=== PATIENT | female | born 1970 | race Caucasian/White ===

== ENCOUNTER → 2017-06-20 | Outpatient (CLI) | payer BC ==
[~2017-06-20] MED LIST: LISI1TAB10 PO; NEBI20TA2 PO; SPIR25TA3 PO
--- NOTE | 2017-06-21 08:41 | Diagnostic Imaging Report ---
Digital mammogram bilateral screening with tomosynthesis. This study was compared to the prior exams of 06/17/2016 and 07/15/2013. At this time, there are no current complaints. The current study was also evaluated with a Computer Aided Detection (CAD) system. FINDINGS: There are bilateral breast implants in place. The implants seem similar to the prior exam. There is no sign of an extracapsular rupture of either implant. The fibroglandular tissue overlying the implants is extremely dense. This does limit the sensitivity of this exam. When compared to the previous study, there does not seem to have been any significant change. There are few benign-appearing calcifications scattered throughout both breasts. There is no primary or secondary sign of malignancy noted. The tomographic views fail to show any sign of malignancy as well. IMPRESSION: 1. There is no evidence for malignancy. 2. The implants appear stable. There is no sign of an extracapsular rupture of either implant. ACR BI-RADS Category 1: Negative. Result letter will be mailed to the patient. Note: At least 10% of breast cancer is not imaged by mammography. Dictated by: Dictated on workstation # [id number]
== END ==
LOC: RAD 13:12
PROVIDERS: ATTEND Nurse Practitioner Family
DX: Z12.31 Encounter for screening mammogram for malignant neoplasm of breast (principal); Z98.82 Breast implant status
CPT/HCPCS: 77067

== ENCOUNTER 2017-07-17 15:58 | Outpatient (RCR) | payer BC | END 2017-07-25 16:52 | disposition home or self-care (01) | PROVIDERS: ATTEND Orthopaedic Surgery Hand Surgery | DX: S63.291A Dislocation of distal interphalangeal joint of left index finger, initial encounter (principal); W19.XXXA Unspecified fall, initial encounter ==

== ENCOUNTER → 2018-06-09 | Outpatient (CLI) | payer BC ==
--- NOTE | 2018-06-09 12:21 | Diagnostic Imaging Report ---
Indication: Routine screening. Comparison is made with prior mammograms from 06/20/2017 and 06/17/2016. 2-D and 3-D bilateral screening mammography was performed with CAD. Bilateral breast implants are again noted. Implant contours appear smooth. No definite extracapsular rupture is seen. The breast parenchyma remains heterogeneously dense, limiting the sensitivity of mammography. No spiculated masses or malignant-appearing microcalcifications are seen. Benign calcifications are noted bilaterally. The axillae are unremarkable. Impression: BI-RADS category 2 No mammographic features suspicious for malignancy are identified. ACR BI-RADS Category 2: Benign findings. Result letter will be mailed to the patient. Note: At least 10% of breast cancer is not imaged by mammography. Dictated by: Dictated on workstation # [id number]
== END ==
LOC: RAD 08:45
PROVIDERS: ATTEND Internal Medicine
DX: Z12.31 Encounter for screening mammogram for malignant neoplasm of breast (principal); Z96.9 Presence of functional implant, unspecified
CPT/HCPCS: 77067

== ENCOUNTER → 2019-06-15 | Outpatient (CLI) | payer BC ==
--- NOTE | 2019-06-15 19:23 | Diagnostic Imaging Report ---
INDICATION: Routine screening. Comparison is made with prior mammograms from 06/09/2018 and 06/20/2017. 2-D and 3-D bilateral screening mammography was performed. The current study was also evaluated with a Computer Aided Detection (CAD) system. 3-D tomosynthesis was also performed and reviewed. FINDINGS: Both breasts show marked parenchymal heterogeneity and increased density, limiting the sensitivity of mammography. Bilateral subpectoral breast implants are again noted. Contours remain smooth. There are scattered benign calcifications. No mass or malignant-appearing microcalcifications are seen. The axillae are unremarkable. IMPRESSION: No mammographic features suspicious for malignancy are identified. ACR BI-RADS Category 2: Benign findings. Result letter will be mailed to the patient. Note: At least 10% of breast cancer is not imaged by mammography. Dictated by: Dictated on workstation # [id number]
== END ==
LOC: RAD 09:22
PROVIDERS: ATTEND Internal Medicine
DX: Z12.31 Encounter for screening mammogram for malignant neoplasm of breast (principal)
CPT/HCPCS: 77067

== ENCOUNTER 2020-05-22 05:36 | Outpatient (RCR) | payer BC ==
[~2020-05-22] VITALS: Ht 180.3 cm; Wt 83.6 kg
[~2020-05-22 05:36] MED LIST changes: +LISI-552 PO; +SPIR25TA5 PO; +VENL50TA2 PO
== END 2020-05-22 10:30 | disposition home or self-care (01) ==
LOC: PREOP 05:36
PROVIDERS: ATTEND Internal Medicine
DX: Z01.812 Encounter for preprocedural laboratory examination (principal); Z11.2 Encounter for screening for other bacterial diseases; Z20.828 Contact with and (suspected) exposure to other viral communicable diseases
CPT/HCPCS: 87635

== ENCOUNTER 2020-05-26 10:45 | Day surgery (SDC) | payer BC ==
--- NOTE | 2020-05-15 08:27 | HISTORY AND PHYSICAL ---
DATE OF SERVICE: COLONOSCOPY HISTORY AND PHYSICAL HISTORY OF PRESENT ILLNESS: The patient is a 49-year-old white female, who presented to the office on 05/11/2020. She was seen for followup of hypertension. She has been experiencing some low level of fatigue and she has some borderline iron studies done. She is still menstruating and also noticed some hot flashes. Her ferritin level was 14.6. Iron level was 79 with TIBC of 305 and iron saturation in lower limits of normal at 25.9. Ferritin level, low end of normal at 14.6. She has noted no blood in her stool. Denies any bowel habit change and has not previously accomplished screening colonoscopy. She gets 8 hours of sleep per night and is exercising on a regular basis. Despite this, she still had difficulty with weight gain. PHYSICAL EXAMINATION: GENERAL: Reveals a white female who appeared to be in no acute distress. VITAL SIGNS: Weight 184.6 pounds, was down 1 pound from one month ago, but up 9 pounds from 6 months ago. Blood pressure 120/70. HEENT: Unremarkable. Mallampati 1 pharyngeal configuration. CHEST: Clear. CARDIOVASCULAR: Regular rate and rhythm without murmur, S3 or S4. ABDOMEN: Soft, supple without mass, organomegaly or tenderness. EXTREMITIES: Reveal no cyanosis, clubbing or edema. ASSESSMENT AND PLAN: 1. Menopausal symptoms. We will obtain an FSH, may consider early hormonal replacement. The patient is currently using progesterone IUD for control. 2. The patient is set up for screening colonoscopy. Prep instructions were given and questions were answered. In addition, an FSH level was drawn today with followup appointment in two months. May consider every other day iron replacement. Discuss further after colonoscopy. Job ID: [id number] DocumentID: [id number] Dictated Date: 05/11/2020 18:23:34 Process Lead Date: 05/11/2020 19:15:47 Dictated By: ALLYSON CASTELAN MD [facility]
[~2020-05-26] VITALS: Ht 180.3 cm; Wt 83.6 kg
[2020-05-26] VITALS (14 sets, daily range): BP systolic 122–152; BP diastolic 55–84
--- NOTE | 2020-05-26 09:59 | Pre-Op Note & Conscious Sedat ---
Pre-Operative Progress Note H&P Reviewed The H&P was reviewed, patient examined and no changes noted. Date H&P Reviewed: May 26, 2020 Time H&P Reviewed: 09:58 Conscious Sedation Pre-Proced ASA Score 2 For ASA 3 and 4: Consider anesthesia and medical clearance. Also, for patients with a history of failed moderate sedation consider anesthesia. Airway Lungs Heart ASA score ASA 1: a normal healthy patient ASA 2: a patient with a mild systemic disease (mid diabetes, controlled hypertension, obesity ASA 3: a patient with a severe systemic disease that limits activity (angina, COPD, prior Myocardial infarction) ASA 4: a patient with an incapacitating disease that is a constant threat to life (CHF, renal failure) ASA 5: a moribund patient not expected to survive 24 hrs. (ruptured aneurysm) ASA 6: a declared brain- patient whose organs are being harvested. For emergent operations, add the letter E after the classification Mallampati Classification Grade 1 Sedation Plan Analgesia, Amnesia, Plan communicated to team members, Discussed options with patient/fam, Discussed risks with patient/fam The patient is an appropriate candidate to undergo the planned procedure, sedation, and anesthesia. The patient immediately re-assessed prior to indication. ALLYSON CASTELAN MD May 26, 2020 09:58
[~2020-05-26 10:45] MED LIST changes: +D5 LR IV SOLUTION 1,000 ML IV ONE; +D5 LR IV SOLUTION 1,000 ML IV STA; +LIDOCAINE JELLY 2% 6 ML SYRINGE MM PRN; +LIDOCAINE JELLY 2% 6 ML SYRINGE ONE; +MIDAZOLAM 5 MG/5 ML (VERSED) VIAL IV PRN; +MIDAZOLAM 5 MG/5 ML (VERSED) VIAL ONE; +fentaNYL INJECTION 100 MCG/2 ML AMP IVP ONE; +fentaNYL INJECTION 100 MCG/2 ML AMP ONE
--- OUTSIDE RECORDS SUMMARY | 2020-05-26 17:22 | XMS REPORT | Continuity of Care Document ---
Author Organization Unknown Address Unknown Phone Unavailable Allergies Active Description Code Type Severity Reaction Onset Reported/Identified Relationship to Patient Clinical Status Yes No Known Drug Allergies [id number] Drug Allergy Unknown N/A 01/21/2013 Medications There is no data. Problems Date Dx Coded Attending Type Code Diagnosis Diagnosed By 09/25/1651 RONY OKEEFE, PEREZ Live Ot S63.291A DISLOCATION OF DISTAL INTERPHALN JOINT O 09/25/1651 RONY OKEEFE, PEREZ Live Ot W19.XXXA UNSPECIFIED FALL, INITIAL ENCOUNTER 01/21/2013 Ot 401.9 HYPE RTENSION NOS 01/21/2013 Ot 784.59 OTH ER SPEECH DISTURBANCE 01/21/[address] PAIN NOS 10/12/2013 TORRES DO PAT K V04.81 FLU SHOT 06/17/2016 Ot V43.82 GAMALIEL AST REPLACEMENT STATUS 06/17/2016 Ot V76.12 OTH SCREEN MAMMO- MALIGN NEOPLASM OF GREG 06/17/2016 Ot 611.72 LUM P OR MASS IN BREAST 06/17/2016 Ot 611.72 LUM P OR MASS IN BREAST 06/17/2016 Ot V43.82 GAMALIEL AST REPLACEMENT STATUS 06/17/2016 Ot 793.80 UNS PEC ABNORMAL MAMMOGRAM 06/17/2016 Ot 784.59 OTH ER SPEECH DISTURBANCE 06/17/2016 ALLYSON CASTELAN MD Ot 793. 89 OTH (ABN) FINDINGS ON RADIOLOGICAL EXAMI 06/17/2016 ALLYSON CASTELAN MD Ot V67. 9 FOLLOW-UP EXAM NOS 06/25/2016 Ot V43.82 GAMALIEL AST REPLACEMENT STATUS 06/25/2016 Ot V76.12 OTH SCREEN MAMMO- MALIGN NEOPLASM OF GREG 06/25/2016 Ot 611.72 LUM P OR MASS IN BREAST 06/25/2016 Ot 611.72 LUM P OR MASS IN BREAST 06/25/2016 Ot V43.82 GAMALIEL AST REPLACEMENT STATUS 06/25/2016 Ot 793.80 UNS PEC ABNORMAL MAMMOGRAM 06/25/2016 Ot 784.59 OTH ER SPEECH DISTURBANCE 06/25/2016 ALLYSON CASTELAN MD Ot 793. 89 OTH (ABN) FINDINGS ON RADIOLOGICAL EXAMI 06/25/2016 ALLYSON CASTELAN MD Ot V67. 9 FOLLOW-UP EXAM NOS 06/25/2016 ALLYSON CASTELAN MD Ot Z12. 31 ENCNTR SCREEN MAMMOGRAM FOR MALIGNANT NE 06/27/2016 ALLYSON CASTELAN MD Ot Z12. 31 ENCNTR SCREEN MAMMOGRAM FOR MALIGNANT NE 07/04/2016 Ot V43.82 GAMALIEL AST REPLACEMENT STATUS 07/04/2016 Ot V76.12 OTH SCREEN MAMMO- MALIGN NEOPLASM OF GREG 07/04/2016 Ot 611.72 LUM P OR MASS IN BREAST 07/04/2016 Ot 611.72 LUM P OR MASS IN BREAST 07/04/2016 Ot V43.82 GAMALIEL AST REPLACEMENT STATUS 07/04/2016 Ot 793.80 UNS PEC ABNORMAL MAMMOGRAM 07/04/2016 Ot 784.59 OTH ER SPEECH DISTURBANCE 07/04/2016 ALLYSON CASTELAN MD Ot 793. 89 OTH (ABN) FINDINGS ON RADIOLOGICAL EXAMI 07/04/2016 ALLYSON CASTELAN MD Ot V67. 9 FOLLOW-UP EXAM NOS 07/04/2016 ALLYSON CASTELAN MD Ot Z12. 31 ENCNTR SCREEN MAMMOGRAM FOR MALIGNANT NE 07/04/2016 Ot V43.82 GAMALIEL AST REPLACEMENT STATUS 07/04/2016 Ot V76.12 OTH SCREEN MAMMO- MALIGN NEOPLASM OF GREG 07/04/2016 Ot 611.72 LUM P OR MASS IN BREAST 07/04/2016 Ot 611.72 LUM P OR MASS IN BREAST 07/04/2016 Ot V43.82 GAMALIEL AST REPLACEMENT STATUS 07/04/2016 Ot 793.80 UNS PEC ABNORMAL MAMMOGRAM 07/04/2016 Ot 784.59 OTH ER SPEECH DISTURBANCE 07/04/2016 ALLYSON CASTELAN MD Ot 793. 89 OTH (ABN) FINDINGS ON RADIOLOGICAL EXAMI 07/04/2016 ALLYSON CASTELAN MD Ot V67. 9 FOLLOW-UP EXAM NOS 07/04/2016 ALLYSON CASTELAN MD Ot Z12. 31 ENCNTR SCREEN MAMMOGRAM FOR MALIGNANT NE 06/02/2017 Ot 611.72 LUM P OR MASS IN BREAST 06/02/2017 Ot 611.72 LUM P OR MASS IN BREAST 06/02/2017 Ot V43.82 GAMALIEL AST REPLACEMENT STATUS 06/02/2017 Ot 793.80 UNS PEC ABNORMAL MAMMOGRAM 06/02/2017 Ot 784.59 OTH ER SPEECH DISTURBANCE 06/02/2017 ALLYSON CASTELAN MD Ot 793. 89 OTH (ABN) FINDINGS ON RADIOLOGICAL EXAMI 06/02/2017 ALLYSON CASTELAN MD Ot V67. 9 FOLLOW-UP EXAM NOS 06/02/2017 ALLYSON CASTELAN MD Ot Z12. 31 ENCNTR SCREEN MAMMOGRAM FOR MALIGNANT NE 06/05/2017 Ot 611.72 LUM P OR MASS IN BREAST 06/05/2017 Ot 611.72 LUM P OR MASS IN BREAST 06/05/2017 Ot V43.82 GAMALIEL AST REPLACEMENT STATUS 06/05/2017 Ot 793.80 UNS PEC ABNORMAL MAMMOGRAM 06/05/2017 Ot 784.59 OTH ER SPEECH DISTURBANCE 06/05/2017 ALLYSON CASTELAN MD Ot 793. 89 OTH (ABN) FINDINGS ON RADIOLOGICAL EXAMI 06/05/2017 ALLYSON CASTELAN MD Ot V67. 9 FOLLOW-UP EXAM NOS 06/05/2017 ALLYSON CASTELAN MD Ot Z12. 31 ENCNTR SCREEN MAMMOGRAM FOR MALIGNANT NE 06/12/2017 Ot 611.72 LUM P OR MASS IN BREAST 06/12/2017 Ot 611.72 LUM P OR MASS IN BREAST 06/12/2017 Ot V43.82 GAMALIEL AST REPLACEMENT STATUS 06/12/2017 Ot 793.80 UNS PEC ABNORMAL MAMMOGRAM 06/12/2017 Ot 784.59 OTH ER SPEECH DISTURBANCE 06/12/2017 ALLYSON CASTELAN MD Ot 793. 89 OTH (ABN) FINDINGS ON RADIOLOGICAL EXAMI 06/12/2017 ALLYSON CASTELAN MD Ot V67. 9 FOLLOW-UP EXAM NOS 06/12/2017 ALLYSON CASTELAN MD Ot Z12. 31 ENCNTR SCREEN MAMMOGRAM FOR MALIGNANT NE 06/18/2017 Ot 611.72 LUM P OR MASS IN BREAST 06/18/2017 Ot 611.72 LUM P OR MASS IN BREAST 06/18/2017 Ot V43.82 GAMALIEL AST REPLACEMENT STATUS 06/18/2017 Ot 793.80 UNS PEC ABNORMAL MAMMOGRAM 06/18/2017 Ot 784.59 OTH ER SPEECH DISTURBANCE 06/18/2017 ALLYSON CASTELAN MD Ot 793. 89 OTH (ABN) FINDINGS ON RADIOLOGICAL EXAMI 06/18/2017 ALLYSON CASTELAN MD Ot V67. 9 FOLLOW-UP EXAM NOS 06/18/2017 ALLYSON CASTELAN MD Ot Z12. 31 ENCNTR SCREEN MAMMOGRAM FOR MALIGNANT NE 06/19/2017 Ot 611.72 LUM P OR MASS IN BREAST 06/19/2017 Ot 611.72 LUM P OR MASS IN BREAST 06/19/2017 Ot V43.82 GAMALIEL AST REPLACEMENT STATUS 06/19/2017 Ot 793.80 UNS PEC ABNORMAL MAMMOGRAM 06/19/2017 Ot 784.59 OTH ER SPEECH DISTURBANCE 06/19/2017 ALLYSON CASTELAN MD Ot 793. 89 OTH (ABN) FINDINGS ON RADIOLOGICAL EXAMI 06/19/2017 ALLYSON CASTELAN MD Ot V67. 9 FOLLOW-UP EXAM NOS 06/19/2017 ALLYSON CASTELAN MD Ot Z12. 31 ENCNTR SCREEN MAMMOGRAM FOR MALIGNANT NE 06/20/2017 Ot 611.72 LUM P OR MASS IN BREAST 06/20/2017 Ot 611.72 LUM P OR MASS IN BREAST 06/20/2017 Ot V43.82 GAMALIEL AST REPLACEMENT STATUS 06/20/2017 Ot 793.80 UNS PEC ABNORMAL MAMMOGRAM 06/20/2017 Ot 784.59 OTH ER SPEECH DISTURBANCE 06/20/2017 ALLYSON CASTELAN MD Ot 793. 89 OTH (ABN) FINDINGS ON RADIOLOGICAL EXAMI 06/20/2017 ALLYSON CASTELAN MD Ot V67. 9 FOLLOW-UP EXAM NOS 06/20/2017 ALLYSON CASTELAN MD Ot Z12. 31 ENCNTR SCREEN MAMMOGRAM FOR MALIGNANT NE 06/27/2017 LAURO PERRIN NURSES DIRECTOR Ot Z12.31 ENCNTR SCREEN MAMMOGRAM FOR MALIGNANT NE 06/27/2017 LAURO PERRIN NURSES DIRECTOR Ot Z98.82 BREAST IMPLANT STATUS 07/02/2017 LAURO PERRIN NURSES DIRECTOR Ot Z12.31 ENCNTR SCREEN MAMMOGRAM FOR MALIGNANT NE 07/02/2017 LAURO PERRIN NURSES DIRECTOR Ot Z98.82 BREAST IMPLANT STATUS 07/09/2017 RONY OKEEFE, PEREZ Live Ot S63.291A DISLOCATION OF DISTAL INTERPHALN JOINT O 07/09/2017 PEREZ URIBE MD A Ot W19.XXXA UNSPECIFIED FALL, INITIAL ENCOUNTER 07/09/2017 Ot 611.72 LUM P OR MASS IN BREAST 07/09/2017 Ot 611.72 LUM P OR MASS IN BREAST 07/09/2017 Ot V43.82 GAMALIEL AST REPLACEMENT STATUS 07/09/2017 Ot 793.80 UNS PEC ABNORMAL MAMMOGRAM 07/09/2017 Ot 784.59 OTH ER SPEECH DISTURBANCE 07/09/2017 ALLYSON CASTELAN MD Ot 793. 89 OTH (ABN) FINDINGS ON RADIOLOGICAL EXAMI 07/09/2017 ALLYSON CASTELAN MD Ot V67. 9 FOLLOW-UP EXAM NOS 07/09/2017 ALLYSON CASTELAN MD Ot Z12. 31 ENCNTR SCREEN MAMMOGRAM FOR MALIGNANT NE 07/09/2017 LAURO PERRIN APRN Ot Z12.31 ENCNTR SCREEN MAMMOGRAM FOR MALIGNANT NE 07/09/2017 LAURO PERRIN APRN Ot Z98.82 BREAST IMPLANT STATUS 07/09/2017 PEREZ URIBE MD Ot S63.291A DISLOCATION OF DISTAL INTERPHALN JOINT O 07/09/2017 PEREZ URIBE MD A Ot W19.XXXA UNSPECIFIED FALL, INITIAL ENCOUNTER 2017 PEREZ URIBE MD Ot S63.291A DISLOCATION OF DISTAL INTERPHALN JOINT O 2017 PEREZ URIBE MD A Ot W19.XXXA UNSPECIFIED FALL, INITIAL ENCOUNTER 04/17/2018 Ot 784.59 OTH ER SPEECH DISTURBANCE 04/17/2018 ALLYSON CASTELAN MD Ot 793. 89 OTH (ABN) FINDINGS ON RADIOLOGICAL EXAMI 04/17/2018 ALLYSON CASTELAN MD Ot V67. 9 FOLLOW-UP EXAM NOS 04/17/2018 ALLYSON CASTELAN MD Ot Z12. 31 ENCNTR SCREEN MAMMOGRAM FOR MALIGNANT NE 04/17/2018 LAURO PERRIN APRN Ot Z12.31 ENCNTR SCREEN MAMMOGRAM FOR MALIGNANT NE 04/17/2018 LAURO PERRIN APRN Ot Z98.82 BREAST IMPLANT STATUS 04/20/2018 SIMON ALLISON APRN Ot G47.10 HYPERSOMNIA, UNSPECIFIED 04/22/2018 LOY PEDRO, GRACE Pulido Ot M47. 22 OTHER SPONDYLOSIS WITH RADICULOPATHY, CE 04/22/2018 KEEGANSIMON DEJESUS LEVI Ot G47.10 HYPERSOMNIA, UNSPECIFIED 05/07/2018 GRACE GRANADO DC, Ot M47. 22 OTHER SPONDYLOSIS WITH RADICULOPATHY, CE 06/26/2018 Ot Z12.31 ENC NTR SCREEN MAMMOGRAM FOR MALIGNANT NE 06/26/2018 Ot Z96.9 PRES ENCE OF FUNCTIONAL IMPLANT, UNSPECIF 06/07/2019 ALLYSON CASTELAN MD Ot Z12. 31 ENCNTR SCREEN MAMMOGRAM FOR MALIGNANT NE 06/07/2019 LAURO PERRIN APRN Ot Z12.31 ENCNTR SCREEN MAMMOGRAM FOR MALIGNANT NE 06/07/2019 LAURO PERRIN APRN Ot Z98.82 BREAST IMPLANT STATUS 06/07/2019 GRACE GRANADO DC, Ot M47. 22 OTHER SPONDYLOSIS WITH RADICULOPATHY, CE 06/07/2019 Ot Z12.31 ENC NTR SCREEN MAMMOGRAM FOR MALIGNANT NE 06/07/2019 Ot Z96.9 PRES ENCE OF FUNCTIONAL IMPLANT, UNSPECIF 07/01/2019 ALLYSON CASTELAN MD Ot Z12. 31 ENCNTR SCREEN MAMMOGRAM FOR MALIGNANT NE 05/26/2020 ALLYSON CASTELAN MD Ot Z12. 31 ENCNTR SCREEN MAMMOGRAM FOR MALIGNANT NE Procedures There is no data. Results There is no data. Encounters ACCT No. Visit Date/Time Discharge Status Pt. Type Provider Facility Loc./Unit Complaint [id number] 10/12/2013 08:45:00 10/12/2013 23:59: 59 CLS Outpatient MELISSA MANNPAT [id number] 05/26/2020 10:45:00 020 11:55:00 DIS Outpatient ALLYSON CASTELAN MD [facility] ENDO SCREENING [id number] 05/22/2020 05:36:00 020 10:30:00 DIS Outpatient ALLYSON CASTELAN MD [facility] PREOP SCREENING [id number] 06/15/2019 09:22:00 019 23:59:59 CLS Outpatient ALLYSON CASTELAN MD [facility] RAD SCREENING [id number] 04/08/2019 14:38:00 019 23:59:59 CLS Preadmit FLIP OKEEFE, ALLYSON Perez [facility] RAD SCREENING [id number] 04/21/2018 10:11:00 018 23:59:59 CLS Outpatient GRACE GRANADO DC [facility] RAD CERVICAL SPINE PAIN WIT H RADICULAPATHY [id number] 04/20/2018 08:53:00 018 09:10:00 DIS Outpatient SIMON ALLISON NURSES DIRECTOR [facility] SLEEP R29.818 SUSPECT ED BONNIE [id number] 07/17/2017 15:58:00 017 16:52:00 DIS Outpatient PEREZ URIBE MD [facility] REHAB L INDEX PIP DIS LOCATION DORSALLY [id number] 06/20/2017 13:12:00 017 23:59:59 CLS Outpatient LAURO PERRIN NURSES DIRECTOR [facility] RAD SCREEENING Z12. 31 [id number] 06/17/2016 11:20:00 016 23:59:59 CLS Outpatient ALLYSON CASTELAN MD [facility] RAD SCREENING [id number] 07/15/2013 14:05:00 013 23:59:59 CLS Outpatient ALLYSON CASTELAN MD [facility] RAD FOLLOW-UP [id number] 06/19/2020 08:45:00 P EN Preadmit JUANY MEI MD [facility] RAD SCREENING. [id number] 06/09/2018 08:45:00 Document Registration [id number] 06/17/2016 11:20:00 Document Registration [id number] 01/26/2013 12:12:00 Document Registration [id number] 01/21/2013 20:00:00 Document Registration [id number] 09/14/2012 09:50:00 Document Registration [id number] 06/11/2012 11:27:00 Document Registration [id number] 06/10/2012 12:55:00 Document Registration [id number] 09/13/2011 08:17:00 Document Registration
--- OUTSIDE RECORDS SUMMARY | 2020-05-26 17:22 | XMS REPORT ---
Author Author [employer] [facility] [employer] [facility] [employer] Address [address] [address] Care Team Providers Care Safety And Security Officer Name Role Phone ALLYSON CASTELAN Unavailable ALLYSON CASTELAN MD Unavailable Unavailable LAURO PERRIN SALON ASSISTANT Unavailable Unavailable SIMON ALLISON APRN Unavailable Unavailable GRACE GRANADO DC Unavailable Unavailable RONY OKEEFE, PEREZ Live Unavailable Unavailable Unavailable Unavailable Allergies The data below is from unstructured sourcesNo known allergies.No known allergies.No known allergies. Encounters Encounter Date Encounter Type Encounter Diagnosis Care Provider Facility Start: Patient encounter ALLYSON CASTELAN MD [facility] 05-26-2020 [facility] End: 05-26-2020 Start: Patient encounter ALLYSON CASTELAN MD [facility] 05-22-2020 [facility] End: 05-22-2020 Start: Patient encounter ALLYSON CASTELAN MD [facility] 05-18-2020 [facility] Start: Patient encounter ALLYSON CASTELAN MD [facility] 06-15-2019 [facility] Start: Patient encounter NA NA VC [facility] 06-09-2018 procedure [facility] ([id number]) Start: Patient encounter ALLYSON CASTELAN MD [facility] Via risti 06-09-2018 [facility] ([id number]) Start: Patient encounter 04-21-2018 procedure Start: Patient encounter GRACE GRANADO DC [facility] Via risti 04-21-2018 procedure [facility] ([id number]) Start: Patient encounter SIMON ALLISON VC Via C hristi 04-20-2018 [facility] ([id number]) End: 04-20-2018 Start: Patient encounter PEREZ govea ([id number]) 07-17-2017 procedure End: 2017 Start: Patient encounter PEREZ URIBE MD [facility] V kirt [place]eral[facility] 07-17-2017 procedure [facility] ([id number]) End: 2017 Start: Patient encounter PEREZ URIBE MD Not A vailable ([id number]) 07-15-2017 procedure Start: Patient encounter PEREZ URIBE MD Not A vailable ([id number]) 07-03-2017 procedure Start: Patient encounter PEREZ URIBE MD Not A vailable ([id number]) 06-25-2017 procedure Start: Patient encounter LAURO PERRIN Not Christal ilable ([id number]) 06-20-2017 procedure Start: Patient encounter PEREZ URIBE MD Not A vailable ([id number]) 06-19-2017 procedure Start: Patient encounter ALLYSON CASTELAN MD Not Availa ble ([id number]) 06-17-2016 procedure Start: Patient encounter ALLYSON CASTELAN MD [facility] Via Ch risti 06-17-2016 procedure [facility] ([id number]) Start: Patient encounter ALLYSON CASTELAN MD Not Availa ble ([id number]) 07-15-2013 procedure Start: Patient encounter GRACE LI MD Not Av ailable ([id number]) 01-26-2013 procedure Start: Emergency department GRACE LI MD Not Available ([id number]) 01-21-2013 patient visit End: 01-21-2013 Start: Patient encounter ALLYSON CASTELAN MD Not [facility]ail[facility] ([id number]) 09-14-2012 procedure Start: Patient encounter ALLYSON CASTELAN MD Not [facility] ([id number]) 06-11-2012 procedure Start: Patient encounter ALLYSON CASTELAN MD Not Availa ble ([id number]) 06-10-2012 procedure Medical Equipment No Information Goals No Information Immunizations No Information Interventions No Information Medications No Information Payers No Information Plan of Treatment The data below is from unstructured sources Prescriptions See Medication Section Discharge Date 04/20/18 9:10am Prescriptions See Medication Section Discharge Date 04/20/18 9:10am Prescriptions See Medication Section Problems Active Problems Problem Problem Date Last Documented Episodic/Chr Provider Classificati Recorded Date on on E Codes: Unspecified fall, initial encounter Episodic PEREZ Fall RONY OKEEFE (8 sources) Essential Unspecified essential hypertension Chronic GRACE hypertension JEN OKEEFE (8 sources) Joint Dislocation of distal Episodic GRAYSON E disorders interphalangeal joint of left index DEARDORFF MD and finger, initial encounter dislocations ; trauma-relat ed (8 sources) Other Encounter for screening mammogram 05-26-2020 Episo dic ALLYSON CASTELAN screening for malignant neoplasm of breast ; MD for Translations: [Other (abnor mal) suspected findings on radiological conditions examination of breast] (not mental disorders or infectious disease) (21 sources) Residual Presence of functional implant, Chronic ALLYSON CASTELAN codes; unspecified MD unclassified (3 sources) Residual Hypersomnia, unspecified Chronic CHR ISTINE codes; KEEGAN unclassified (4 sources) Residual Breast implant status Chronic SHERIDAN E codes; AYDIN unclassified (4 sources) Residual Breast replacement Chronic ALLYSON ANGEL SON codes; MD unclassified (6 sources) Spondylosis; 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, cervical region DC al disc disorders; other back problems (3 sources) Past or Other Problems Problem Problem Date Last Documented Episodic/Chr Provider Classificati Recorded Date onic on Nonmalignant Lump or mass in breast Episodic ALLYSON CASTELAN breast MD conditions (13 sources) Nonspecific Chest pain, unspecified Episodic GERBER THY chest pain JEN OKEEFE (15 sources) Other Unspecified follow-up examination Episodic ALLYSON CASTELAN aftercare MD (7 sources) Other Other speech disturbance Episodic SAULO OTHY nervous JEN OKEEFE system disorders (16 sources) Procedures The data below is from unstructured sourcesNo procedure information available.No procedure information available.No procedure information available. Results The data below is from unstructured sourcesNo relevant diagnostic test, laboratory data and/or discharge summary information available.No relevant diagnostic test, laboratory data and/or discharge summary information available.No relevant diagnostic test, laboratory data and/or disc harge summary information available. Social History No Information Vital Signs The data below is from unstructured sourcesNo vital sign information available.No vital sign information available.No vital sign information available. Functional Status The data below is from unstructured sourcesNo functional status information available.No functional status information available.No functional status information available. Mental Status No Information Advance Directives Directive Response Recor ded Date/Time Advance Directives No 8:13pm Discharge Instructions No hospital discharge instruction information available.No hospital discharge instruction information available. Additional Source Comments This clinical document has been generated using [employer] software that has been certified by the Office of the National Coordinator for Health Information Technology (ONC 15.99.04.3023.Diam.31.00.0.158163) and the National Committee for Court Usher (NCQA, as an eMeasure certified technology). FOR RECORDS PERTAINING TO PATIENTS WHO ARE OR HAVE BEEN ENROLLED IN A CHEMICAL D EPENDENCY/SUBSTANCE ABUSE PROGRAM, SOME INFORMATION MAY BE OMITTED. This clinica l summary was aggregated from multiple sources. Caution should be exercised in using it in the provision of clinical care. This summary normalizes information from multiple sources, and as a consequence, information in this document may ma terially change the coding, format and clinical context of patient data. In quintin tion, data may be omitted in some cases. CLINICAL DECISIONS SHOULD BE BASED ON T HE PRIMARY CLINICAL RECORDS. [employer]. provides no warranty or guara ntee of the accuracy or completeness of information in this document.The followi ng information is based on time limited clinical information
--- NOTE | 2020-05-26 17:24 | OPERATIVE REPORT ---
DATE OF SERVICE: COLONOSCOPY SUMMARY INDICATION FOR THE PROCEDURE: Screening colonoscopy. I am her primary care provider. DESCRIPTION OF PROCEDURE: The patient was placed in the left lateral decubitus position. Prior to undergoing colonoscopy, digital rectal evaluation was performed. Anal sphincter tone was normal and the perianal reflexes intact. No abnormalities were noted on digital inspection of anal canal or distal rectal vault. The colonoscope was then inserted into the rectum and under direct visualization advanced to cecum. The cecum was identified by identification of the ileocecal valve and cecal strap. Photographic documentation was obtained. A careful inspection was made as the colonoscope was withdrawn. The patient tolerated the procedure well. FINDINGS: There was no evidence for . The rectum was unremarkable. Present in the distal sigmoid colon was a 5 mm sessile polyp was biopsied and ablated via hot forceps. Present in the mid sigmoid colon was diminutive 2 mm sessile polyp, it too was biopsied and ablated with no subsequent blood loss. No evidence for diverticular disease was noted. The descending colon, splenic flexure, transverse colon, hepatic flexure, ascending colon and cecum were unremarkable. ASSESSMENT: Two diminutive polyps were removed via hot forceps. Otherwise, normal colonoscopy to cecum. As the patient is not aware of any family history for colon cancer, we would advocate consideration for repeat screening colonoscopy in 10 years. Job ID: [id number] DocumentID: [id number] Dictated Date: 05/26/2020 12:09:48 Nursery Manager Date: 05/26/2020 17:23:22 Dictated By: ALLYSON CASTELAN MD
--- OUTSIDE RECORDS SUMMARY | 2020-05-26 17:27 | XMS REPORT ---
Author Author [employer] artist representative [employer] [facility] Emergency Department [employer] [facility] [employer] Address [address] [address] Care Team Providers Care Land Surveyor Name Role Phone ALLYSON CASTELAN Unavailable ALLYSON CASTELAN MD Unavailable Unavailable ALURO PERRIN MIDWIFE Unavailable Unavailable SIMON ALLISON APRN Unavailable Unavailable GRACE GRANADO DC Unavailable Unavailable RONY OKEEFE, PEREZ Live Unavailable Unavailable Unavailable Unavailable Allergies The data below is from unstructured sourcesNo known allergies.No known allergies.No known allergies. Encounters Encounter Date Encounter Type Encounter Diagnosis Care Provider Facility Start: Patient encounter ALLYSON CASTELAN MD [facility] 05-26-2020 [facility] End: 05-26-2020 Start: Patient encounter ALLYSON CASTELAN MD [facility] 05-22-2020 [facility] End: 05-22-2020 Start: Patient encounter ALLYSON CASTELAN MD [facility] 05-18-2020 [facility] Start: Patient encounter ALLYSON CASTELAN MD [facility] 06-15-2019 [facility] Start: Patient encounter NA NA VC [facility] 06-09-2018 procedure [facility] ([id number]) Start: Patient encounter ALLYSON CASTELAN MD [facility] Via risti 06-09-2018 [facility] ([id number]) Start: Patient encounter 04-21-2018 procedure Start: Patient encounter GRACE GRANADO DC [facility] Via risti 04-21-2018 procedure [facility] ([id number]) Start: Patient encounter SIMON ALLISON VC [facility]i 04-20-2018 [facility] ([id number]) End: 04-20-2018 Start: Patient encounter PEREZ govea ([id number]) 07-17-2017 procedure End: 2017 Start: Patient encounter PEREZ URIBE MD [facility] V kirt Peralta 07-17-2017 procedure [facility] ([id number]) End: 2017 Start: Patient encounter PEREZ URIBE MD Not A vailable ([id number]) 07-15-2017 procedure Start: Patient encounter PEREZ URIBE MD Not A vailable ([id number]) 07-03-2017 procedure Start: Patient encounter PEREZ URIBE MD Not A vailable ([id number]) 06-25-2017 procedure Start: Patient encounter LAURO PERRIN Not Christal ilable ([id number]) 06-20-2017 procedure Start: Patient encounter PEREZ URIBE MD Not A vailable ([id number]) 06-19-2017 procedure Start: Patient encounter ALLYSON CASETLAN MD Not Availa ble (03639) 06-17-2016 procedure Start: Patient encounter ALLYSON CASTELAN MD [facility] Via Ch risti 06-17-2016 procedure [facility] ([id number]) Start: Patient encounter ALLYSON CASTELAN MD Not Availa ble ([id number]) 07-15-2013 procedure Start: Patient encounter GRACE LI MD Not Av ailable ([id number]) 01-26-2013 procedure Start: Emergency department GRACE LI MD Not Available ([id number]) 01-21-2013 patient visit End: 01-21-2013 Start: Patient encounter ALLYSON CASTELAN MD Not Availa ble ([id number]) 09-14-2012 procedure Start: Patient encounter ALLYSON CASTELAN MD Not Availa ble ([id number]) 06-11-2012 procedure Start: Patient encounter ALLYSON CASTELAN MD Not Availa ble ([id number]) 06-10-2012 procedure Medical Equipment No Information Goals [...] (15 sources) Other Unspecified follow-up examination Episodic LALYSON CASTELAN aftercare MD (7 sources) Other Other [...] This clinical document has been generated using [employer] software that has been certified by the Office of the National Coordinator for Health Information Technology (ONC 15.99.04.3023.Diam.31.00.0.112273) and the National Committee for Medical Recruiter (NCQA, as an eMeasure certified technology). FOR [...] BASED ON T HE PRIMARY CLINICAL RECORDS. [employer]. provides no warranty or guara ntee of the accuracy or completeness of information in this document.The followi ng information is based on time limited clinical information
--- OUTSIDE RECORDS SUMMARY | 2020-05-26 17:27 | XMS REPORT | Continuity of Care Document ---
Author Organization Unknown Address Unknown Phone Unavailable Allergies Active Description Code Type Severity Reaction Onset Reported/Identified Relationship to Patient Clinical Status Yes No Known Drug Allergies [id number] Drug Allergy Unknown N/A 01/21/2013 Medications There [...] MAMMOGRAM FOR MALIGNANT NE 06/27/2017 LAURO PERRIN MATERIAL ATTENDANT Ot Z12.31 ENCNTR SCREEN MAMMOGRAM FOR MALIGNANT NE 06/27/2017 LAURO PERRIN MATERIAL ATTENDANT Ot Z98.82 BREAST IMPLANT STATUS 07/02/2017 LAURO PERRIN MATERIAL ATTENDANT Ot Z12.31 ENCNTR SCREEN MAMMOGRAM FOR MALIGNANT NE 07/02/2017 LAURO PERRIN MATERIAL ATTENDANT Ot Z98.82 BREAST IMPLANT STATUS 07/09/2017 RONY [...] Status Pt. Type Provider Facility Loc./Unit Complaint [id number] 10/12/2013 08:45:00 10/12/2013 23:59: 59 CLS Outpatient MELISSA MANNPAT [id number] 05/26/2020 10:45:00 020 11:55:00 DIS Outpatient ALLYSON CASTELAN MD [facility] ENDO SCREENING [id number] 05/22/2020 05:36:00 020 10:30:00 DIS Outpatient ALLYSON CASTELAN MD [facility] PREOP SCREENING [id number] 06/15/2019 09:22:00 019 23:59:59 CLS Outpatient ALLYSON CASTELAN MD [facility] RAD SCREENING [id number] 04/08/2019 14:38:00 019 23:59:59 CLS Preadmit FLIP OKEEFE, ALLYSON Perez [facility] RAD SCREENING [id number] 04/21/2018 10:11:00 018 23:59:59 CLS Outpatient GRACE GRANADO DC [facility] RAD CERVICAL SPINE PAIN WIT H RADICULAPATHY [id number] 04/20/2018 08:53:00 018 09:10:00 DIS Outpatient SIMON ALLISON MATERIAL ATTENDANT [facility] SLEEP R29.818 SUSPECT ED BONNIE [id number] 07/17/2017 15:58:00 017 16:52:00 DIS Outpatient PEREZ URIBE MD [facility] REHAB L INDEX PIP DIS LOCATION DORSALLY [id number] 06/20/2017 13:12:00 017 23:59:59 CLS Outpatient LAURO PERRIN MATERIAL ATTENDANT [facility] RAD SCREEENING Z12. 31 [id number] 06/17/2016 11:20:00 016 23:59:59 CLS Outpatient ALLYSON CASTELAN MD [facility] RAD SCREENING [id number] 07/15/2013 14:05:00 013 23:59:59 CLS Outpatient ALLYSON CASTELAN MD [facility] RAD FOLLOW-UP [id number] 06/19/2020 08:45:00 P EN Preadmit JUANY MEI MD [facility] RAD SCREENING. [id number] 06/09/2018 08:45:00 Document Registration [id number] 06/17/2016 11:20:00 Document Registration [id number] 01/26/2013 12:12:00 Document Registration [id number] 01/21/2013 20:00:00 Document Registration [id number] 09/14/2012 09:50:00 Document Registration [id number] 06/11/2012 11:27:00 Document Registration [id number] 06/10/2012 12:55:00 Document Registration [id number] 09/13/2011 08:17:00 Document Registration
== END 2020-05-26 11:55 | disposition home or self-care (01) ==
LOC: ENDO 10:45
PROVIDERS: ATTEND Internal Medicine
DX: Z12.11 Encounter for screening for malignant neoplasm of colon (principal); K63.5 Polyp of colon; I10 Essential (primary) hypertension; N95.1 Menopausal and female climacteric states; R23.2 Flushing

== ENCOUNTER → 2020-06-19 | Outpatient (CLI) | payer BC ==
[~2020-06-19] MED LIST changes: -D5 LR IV SOLUTION 1,000 ML IV ONE; -D5 LR IV SOLUTION 1,000 ML IV STA; -LIDOCAINE JELLY 2% 6 ML SYRINGE MM PRN; -LIDOCAINE JELLY 2% 6 ML SYRINGE ONE; -MIDAZOLAM 5 MG/5 ML (VERSED) VIAL IV PRN; -MIDAZOLAM 5 MG/5 ML (VERSED) VIAL ONE; -fentaNYL INJECTION 100 MCG/2 ML AMP IVP ONE; -fentaNYL INJECTION 100 MCG/2 ML AMP ONE
--- NOTE | 2020-06-19 10:13 | Diagnostic Imaging Report ---
INDICATION: Routine screening. COMPARISON: 06/15/2019 and 06/09/2018. TECHNIQUE: 2D and 3D bilateral screening mammography was performed with CAD. FINDINGS: The patient has bilateral subpectoral breast implants. The implant contours appear smooth. Both breasts show marked parenchymal heterogeneity and increased density, limiting the sensitivity of mammography. Occasional benign calcifications are noted. No mass or malignant appearing microcalcifications are identified. The axillae are unremarkable. IMPRESSION: No mammographic features suspicious for malignancy are identified. ACR BI-RADS Category 2: Benign findings. Result letter will be mailed to the patient. Note: At least 10% of breast cancer is not imaged by mammography. Dictated by: Dictated on workstation # [id number]
== END ==
LOC: RAD 08:45
PROVIDERS: ATTEND Obstetrics & Gynecology Obstetrics
DX: Z12.31 Encounter for screening mammogram for malignant neoplasm of breast (principal)
CPT/HCPCS: 77063; 77067

== ENCOUNTER → 2022-04-23 | Outpatient (CLI) | payer BC, OTHER ==
[~2022-04-23] MED LIST changes: -LISI-552 PO; +LISI20TA26 PO
== END ==
LOC: CARD 12:30
PROVIDERS: ATTEND Nurse Practitioner Family
DX: R00.2 Palpitations (principal)
CPT/HCPCS: 93005

== ENCOUNTER → 2022-05-06 | Outpatient (CLI) | payer OTHER ==
[~2022-05-06] MED LIST changes: +APIX5TAB PO; +CALC-140 PO; +DILT180C85 PO; +LISI1TAB48 PO; +MULT200T12 PO; +NFNEB10T PO; +NORE1TAB95 PO; +SPIR50TA4 PO; +VENL150C98 PO
== END ==
LOC: CARD 09:16
PROVIDERS: ATTEND Nurse Practitioner Family
DX: R00.2 Palpitations (principal)
CPT/HCPCS: 93246

== ENCOUNTER 2022-05-07 14:29 | Observation (INO) | payer OTHER ==
[~2022-05-07] VITALS: Ht 180.3 cm; Wt 80.3 kg
[~2022-05-07 14:29] MED LIST changes: -APIX5TAB PO; -CALC-140 PO; -DILT180C85 PO; -LISI1TAB48 PO; -MULT200T12 PO; -NFNEB10T PO; -NORE1TAB95 PO; -SPIR50TA4 PO; -VENL150C98 PO
[2022-05-07] MEDS ORDERED: ADENOSINE 6 MG/2 ML (ADENOCARD) VIAL IV ONE ×3 (14:39→15:15)
[2022-05-07] MEDS ORDERED: NS IV 1000 ML 1,000 ML ONE (14:39)
--- NOTE | 2022-05-07 15:06 | ED Chest Pain ---
General Chief Complaint: Cardiac/General Problems Stated Complaint: CP,SOB,MAGAÑA Source: patient Exam Limitations: no limitations History of Present Illness Date Seen by Provider: May 07, 2022 Time Seen by Provider: 14:38 Initial Comments Patient to the ER by private conveyance from home with chief complaint of racing heart rate palpitations substernal chest pain nonradiating and shortness of breath and malaise. She has had the symptoms off and on for the past several weeks. She thought maybe it was related to menopause so she was following with Ashlyn Hay. Ashlyn Hay felt that her heart rate was fast and sent her to Dr. Mora's office where Sabra practitioner put her on a heart monitor yesterday. 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 She does have a history of hypertension on Bystolic, spironolactone and lisinopril. She does not have any history of hyperlipidemia or diabetes but she does smoke cigarettes. No significant primary family history of early onset coronary disease or CVA. Allergies and Home Medications Allergies Coded Allergies: No Known Drug Allergies (Unverified , 01/21/13) Patient Home Medication List Home Medication List Reviewed: Yes Lisinopril (Lisinopril) Unknown Strength Tablet, 1 TAB PO DAILY, (Reported) Entered as Reported by: MIGDALIA MAHER on 05/18/20 144 Nebivolol HCl (Bystolic) Unknown Strength Tablet, 1 TAB PO DAILY, (Reported) Entered as Reported by: MIGDALIA MAHER on 05/18/20 1443 Spironolactone (Spironolactone) Unknown Strength Tablet, 1 TAB PO DAILY, (Reported) Entered as Reported by: MIGDALIA MAHER on 05/18/20 1443 Venlafaxine HCl (Venlafaxine HCl) Unknown Strength Tablet, 1 TAB PO DAILY, (Reported) Entered as Reported by: MIGDALIA MAHER on 05/18/20 1443 Review of Systems Review of Systems Constitutional: No chills, No diaphoresis EENTM: No Blurred Vision, No Double Vision Respiratory: Denies Cough, Denies Shortness of Air Cardiovascular: Chest Pain; Denies Edema, Denies Irregular Heart Rate; Lightheadedness, Palpitations; Denies Syncope Gastrointestinal: Denies Constipated, Denies Diarrhea, Denies Nausea Genitourinary: Denies Burning, Denies Discharge Musculoskeletal: No back pain, No joint pain Skin: No pruritus, No rash Psychiatric/Neurological: Denies Headache, Denies Numbness All Other Systems Reviewed Negative Unless Noted: Yes Past Cajzhwp-Bstiuv-Dwtloz Hx Patient Social History Tobacco Use?: Yes Tobacco type used: Cigarettes Smoking Status: Current Everyday Smoker Use of E-Cig and/or Vaping dev: No Substance use?: No Alcohol Use?: Yes Alcohol type: Beer Alcohol Frequency: Couple times a week Seasonal Allergies Seasonal Allergies: No Past Medical History Surgeries: Yes (breast augmention) Section Respiratory: No Cardiac: Yes Hypertension Neurological: No Genitourinary: No Gastrointestinal: No Musculoskeletal: No Endocrine: No HEENT: No Cancer: No Psychosocial: Yes Depression Integumentary: No Blood Disorders: No Family Medical History Cancer, Hypertension Physical Exam Vital Signs Vital Signs - First Documented 05/07/22 14:33 Temp 36.8 Pulse 207 Resp 22 B/P (MAP) 112/80 (91) Pulse Ox 99 O2 Delivery Room Air Capillary Refill : Height, Weight, BMI Height: '" Weight: lbs. oz. kg; 25.71 BMI Method:Stated General Appearance: WD/WN, Anxious, Moderate Distress HEENT: PERRL/EOMI, Pharynx Normal, Moist Mucous Membranes Neck: Full Range of Motion, Normal Inspection Respiratory: No Accessory Muscle Use, No Respiratory Distress Cardiovascular: Regular Rate, Rhythm, No Edema, Tachycardia (180 +-) Gastrointestinal: Normal Bowel Sounds, No Organomegaly, Non Tender, Soft Extremity: Normal Capillary Refill, Normal Inspection, Normal Range of Motion, No Pedal Edema Neurologic/Psychiatric: Alert, Oriented x3, Other (Anxious, tearful affect) Skin: Normal Color, Warm/Dry Progress/Results/Core Measures Results/Orders Lab Results Laboratory Tests Test 05/07/22 14:45 05/07/22 15:15 Range/Units White Blood Count 6.7 4.3-11.0 10^3/uL Red Blood Count 3.87 3.80-5.11 10^6/uL Hemoglobin 11.9 11.5-16.0 g/dL Hematocrit 36 35-52 % Mean Corpuscular Volume 92 80-99 fL Mean Corpuscular Hemoglobin 31 25-34 pg Mean Corpuscular Hemoglobin Concent 33 32-36 g/dL Red Cell Distribution Width 12.9 10.0-14.5 % Platelet Count 352 130-400 10^3/uL Mean Platelet Volume 10.1 9.0-12.2 fL Immature Granulocyte % (Auto) 0 % Neutrophils (%) (Auto) 64 42-75 % Lymphocytes (%) (Auto) 23 12-44 % Monocytes (%) (Auto) 9 0-12 % Eosinophils (%) (Auto) 3 0-10 % Basophils (%) (Auto) 1 0-10 % Neutrophils # (Auto) 4.3 1.8-7.8 10^3/uL Lymphocytes # (Auto) 1.6 1.0-4.0 10^3/uL Monocytes # (Auto) 0.6 0.0-1.0 10^3/uL Eosinophils # (Auto) 0.2 0.0-0.3 10^3/uL Basophils # (Auto) 0.1 0.0-0.1 10^3/uL Immature Granulocyte # (Auto) 0.0 0.0-0.1 10^3/uL Prothrombin Time 12.4 12.2-14.7 SEC INR Comment 0.9 0.8-1.4 Activated Partial Thromboplast Time 26 24-35 SEC Sodium Level 141 135-145 MMOL/L Potassium Level 3.4 L 3.6-5.0 MMOL/L Chloride Level 105 98-107 MMOL/L Carbon Dioxide Level 24 21-32 MMOL/L Anion Gap 12 5-14 MMOL/L Blood Urea Nitrogen 13 7-18 MG/DL Creatinine 0.88 0.60-1.30 MG/DL Estimat Glomerular Filtration Rate 79 BUN/Creatinine Ratio 15 Glucose Level 128 H 70-105 MG/DL Calcium Level 9.8 8.5-10.1 MG/DL Corrected Calcium 9.6 8.5-10.1 MG/DL Magnesium Level 1.7 1.6-2.4 MG/DL Total Bilirubin 0.5 0.1-1.0 MG/DL Aspartate Amino Transf (AST/SGOT) 16 5-34 U/L Alanine Aminotransferase (ALT/SGPT) 11 0-55 U/L Alkaline Phosphatase 59 40-136 U/L Myoglobin 32.7 10.0-92.0 NG/ML Troponin I < 0.028 <0.028 NG/ML Total Protein 7.3 6.4-8.2 GM/DL Albumin 4.3 3.2-4.5 GM/DL Urine Color YELLOW Urine Clarity CLEAR Urine pH 7.5 5-9 Urine Specific [place] <=1.005 1.016-1.022 Urine Protein NEGATIVE NEGATIVE Urine Glucose (UA) NEGATIVE NEGATIVE Urine Ketones NEGATIVE NEGATIVE Urine Nitrite NEGATIVE NEGATIVE Urine Bilirubin NEGATIVE NEGATIVE Urine Urobilinogen 0.2 < = 1.0 MG/DL Urine Leukocyte Esterase NEGATIVE NEGATIVE Urine RBC (Auto) TRACE-I H NEGATIVE Urine RBC NONE /HPF Urine WBC NONE /HPF Urine Squamous Epithelial Cells 2-5 /HPF Urine Crystals NONE /LPF Urine Bacteria NEGATIVE /HPF Urine Casts NONE /LPF Urine Mucus NEGATIVE /LPF Urine Culture Indicated NO My Orders Orders - LINETTE STODDARD Ekg Tracing (05/07/22 14:37) Ekg Tracing (05/07/22 14:38) Continuous Ekg Monitoring (05/07/22 14:38) Adenosine Injection (Adenocard Injection (05/07/22 14:39) Ns Iv 1000 Ml (Sodium Chloride 0.9%) (05/07/22 14:39) Ekg Tracing (05/07/22 15:01) Adenosine Injection (Adenocard Injection (05/07/22 15:15) Adenosine Injection (Adenocard Injection (05/07/22 15:15) Cbc With Automated Diff (05/07/22 15:01) Magnesium (05/07/22 15:01) Chest 1 View, Ap/Pa Only (05/07/22 15:01) Comprehensive Metabolic Panel (05/07/22 15:01) Myoglobin Serum (05/07/22 15:01) Protime With Inr (05/07/22 15:01) Partial Thromboplastin Time (05/07/22 15:01) O2 (05/07/22 15:01) Lipid Panel (05/08/22 06:00) Ed Iv/Invasive Line Start (05/07/22 15:01) Troponin I [place] (05/07/22 15:01) Aspirin Chewable Tablet (Baby Aspirin Ch (05/07/22 15:15) Ua Culture If Indicated (05/07/22 15:06) Diltiazem Drip Pre-Mix (Cardizem Drip Pr (05/07/22 15:15) Diltiazem Injection (Cardizem Injection) (05/07/22 15:15) Apixaban Tablet (Eliquis Tablet) (05/07/22 15:15) Medications Given in ED Current Medications Medications Dose Ordered Sig/Denny Route Start Time Stop Time Status Last Admin Dose Admin Adenosine 6 mg STK-MED ONCE IV 05/07/22 14:39 05/07/22 14:43 DC 05/07/22 14:58 6 MG Adenosine 12 mg ONCE ONCE IV 05/07/22 15:15 05/07/22 15:16 DC 05/07/22 15:15 12 MG Apixaban 5 mg ONCE ONCE PO 05/07/22 15:15 05/07/22 15:17 DC 05/07/22 15:35 5 MG Aspirin 324 mg ONCE ONCE PO 05/07/22 15:15 05/07/22 15:16 DC 05/07/22 15:14 324 MG Diltiazem HCl 20 mg ONCE ONCE IVP 05/07/22 15:15 05/07/22 15:16 DC 05/07/22 15:15 20 MG Sodium Chloride 1,000 ml @ ud STK-MED ONCE .ROUTE 05/07/22 14:39 05/07/22 14:43 DC 05/07/22 14:58 999 MLS/HR Vital Signs/I&O 05/07/22 14:33 Temp 36.8 Pulse 207 Resp 22 B/P (MAP) 112/80 (91) Pulse Ox 99 O2 Delivery Room Air Progress Progress Note : Time: 15:12 Progress Note 3 and 25 mg aspirin, 5 mg Eliquis after consulting with cardiology. We gave her a 6 mg followed by 12 mg dose of Adenocard for stable narrow complex tachycardia which revealed an underlying flutter and sinus rhythm. While was not immediately clear what the true underlying rhythm is it seems like atrial flutter with rapid ventricular response. Reviewed the EKGs with Dr. Calderon, cardiology and he agreed. Cardizem drip will be initiated after a 20 mg IV bolus. A liter of saline. Dr. Calderon would like the patient in the ICU. Initial ECG Impression Date: May 07, 2022 Initial ECG Impression Time: 14:40 Initial ECG Rate: 141 Initial ECG Rhythm: A Fib/Flutter Initial ECG Intervals: QT (390) Initial ECG Impression: Atrial Fibrillation w/RVR Initial ECG Comparisson: No Previous ECG Available Comment Atrial fibrillation with rapid ventricular spots without clinically relevant ST elevation or depression. EKG #1: EKG Time: 14:46 Rate: 120 Rhythm: A Fib/Flutter ECG Comparisson: Unchanged ECG Impression: Atrial Fibrillation w/RVR Comment After administration of Identicard 6 mg or may be a fine atrial fibrillation/flutter underneath the goes directly into sinus rhythm and back into atrial flutter with rapid ventricular response. EKG #2: EKG Time: 14:49 Rate: 77 Rhythm: A Fib/Flutter ECG Impression: Normal Comment After 12 mg of Adenocard the patient had a long pause underlying atrial flutter was seen which broke into a sinus rhythm. No clinically relevant ST changes Diagnostic Imaging Diagonstic Imaging: Xray Plain Films/CT/US/NM/MRI: chest Comments [facility]. [place], [place] NAME: HELADIO TATE [facility] REC#: [id number] PT STATUS: REG ER : 1970 PHYSICIAN: LINETTE STODDARD MD ADMIT DATE: 05/07/22/ER Signed Date of Exam:05/07/22 CHEST 1 VIEW, AP/PA ONLY EXAMINATION: Chest 1 view HISTORY: Chest pain COMPARISON: 01/21/2013 FINDINGS: Heart size and pulmonary vasculature are normal. The lungs are clear without consolidation, pleural effusion, or pneumothorax. The osseous structures are intact. There is a metallic device overlying the left chest which may be external to the patient. IMPRESSION: 1. No acute radiographic abnormality in the chest. Dictated by: Dictated on workstation # [id number] Dict: 05/07/22 1532 Trans: 05/07/22 1716 [facility] [id number] Interpreted by: BHARATH FRANK DO Electronically signed by: BHARATH FRANK DO 05/07/22 1716 Reviewed: Reviewed by Ky Departure Communication (Admissions) Time/Spoke to Admitting Phy: 17:30 Dr. Mlahotra agrees to observe the patient and put in queued orders. Amanda villalpando Time/Spoke to Consulting Phy: 15:04 Discussed the case and reviewed the EKGs with Dr. Calderon who agrees with Haley Hardy for now and he will consult in the ICU. Impression Primary Impression: Atrial fibrillation with rapid ventricular response Additional Impression: Chest pain Qualified Codes: R07.9 - Chest pain, unspecified Disposition: ADMITTED INPATIENT Condition: Stable Admissions Decision to Admit Reason: Admit from ER (General) Decision to Admit/Date: May 07, 2022 Time/Decision to Admit Time: 15:14 Departure-Patient Inst. Referrals: ALLYSON MORA MD (PCP/Family) Primary Care Physician LINETTE STODDARD May 07, 2022 15:06
[2022-05-07 15:15] LABS: BASOPHILS # (AUTO) 0.1 10^3/uL (0.0-0.1); BASOPHILS % (AUTO) 1 % (0-10); EOSINOPHILS # (AUTO) 0.2 10^3/uL (0.0-0.3); EOSINOPHILS % (AUTO) 3 % (0-10); HEMATOCRIT 36 % (35-52); HEMOGLOBIN 11.9 g/dL (11.5-16.0); LYMPHOCYTES # (AUTO) 1.6 10^3/uL (1.0-4.0); LYMPHOCYTES % (AUTO) 23 % (12-44); MEAN CORPUSCULAR HEMOGLOBIN 31 pg (25-34); MEAN CORPUSCULAR HGB CONC 33 g/dL (32-36); MEAN CORPUSCULAR VOLUME 92 fL (80-99); MEAN PLATELET VOLUME 10.1 fL (9.0-12.2); MONOCYTES # (AUTO) 0.6 10^3/uL (0.0-1.0); MONOCYTES % (AUTO) 9 % (0-12); NEUTROPHILS # (AUTO) 4.3 10^3/uL (1.8-7.8); NEUTROPHILS % (AUTO) 64 % (42-75); PLATELET COUNT 352 10^3/uL (130-400); WHITE BLOOD COUNT 6.7 10^3/uL (4.3-11.0)
[2022-05-07] MEDS ORDERED: APIXABAN 5 MG (ELIQUIS) TABLET PO ONE (15:15)
[2022-05-07] MEDS ORDERED: ASPIRIN 81 MG CHEW (CHILDREN'S ASA) PO ONE (15:15)
[2022-05-07] MEDS ORDERED: dilTIAZem DRIP PRE-MIX 125 ML IV SCH ×2 (15:15→18:00)
[2022-05-07 15:26] LABS: BILIRUBIN,URINE NEGATIVE (NEGATIVE); CLARITY,URINE CLEAR; COLOR,URINE YELLOW; GLUCOSE, URINE (UA) NEGATIVE (NEGATIVE); KETONES,URINE NEGATIVE (NEGATIVE); LEUKOCYTE ESTERASE ,URINE NEGATIVE (NEGATIVE); NITRITE,URINE NEGATIVE (NEGATIVE); PH,URINE 7.5 (5-9); PROTEIN,URINE NEGATIVE (NEGATIVE)
[2022-05-07 15:32] LABS: ALBUMIN 4.3 GM/DL (3.2-4.5)
[2022-05-07 15:33] LABS: POTASSIUM 3.4 MMOL/L (3.6-5.0)
[2022-05-07 15:34] LABS: CALCIUM 9.8 MG/DL (8.5-10.1); INR 0.9 (0.8-1.4); PROTHROMBIN TIME PATIENT 12.4 SEC (12.2-14.7)
[2022-05-07 15:35] LABS: BACTERIA,URINE NEGATIVE /HPF
[2022-05-07 15:35] LABS: TOTAL PROTEIN 7.3 GM/DL (6.4-8.2)
--- NOTE | 2022-05-07 15:35 | Diagnostic Imaging Report ---
EXAMINATION: Chest 1 view HISTORY: Chest pain COMPARISON: 01/21/2013 FINDINGS: Heart size and pulmonary vasculature are normal. The lungs are clear without consolidation, pleural effusion, or pneumothorax. The osseous structures are intact. There is a metallic device overlying the left chest which may be external to the patient. IMPRESSION: 1. No acute radiographic abnormality in the chest. Dictated by: Dictated on workstation # [id number]
[2022-05-07 15:37] LABS: BILIRUBIN,TOTAL 0.5 MG/DL (0.1-1.0)
[2022-05-07 15:39] LABS: CREATININE SERUM 0.88 MG/DL (0.60-1.30)
[2022-05-07 15:42] LABS: MAGNESIUM 1.7 MG/DL (1.6-2.4)
--- NOTE | 2022-05-07 16:01 | Consultation-Cardiology ---
HPI-Cardiology Cardiology Consultation: Date of Consultation 05/07/22 Time Seen by a Provider: 16:40 Date of Admission 05-07-22 Attending Physician Norbert Mora MD Admitting Physician Admitting Physician: Attending Physician: Consulting Physician Nely Calderon MD HPI: Chief Complaint: A-fib/flutter with RVR Ms. Tate is a 51 yr old female being admitted to ICU 8 from the ED with new onset of a-fib/flutter with RVR. She reports she has been having symptoms of palpitations for several months. Previously the episodes would come on with exertion, last for minutes and resolve. She reports the episodes have become increasing worse. She states since the end of March she has not been able to exercise d/t her heart racing, SOB, dizziness. She states she went to see Ashlyn Hay APRN yesterday who noticed she had a rapid pulse. She was then sent to Dr. Montaño office where she saw his PAYROLL EXAMINER who ordered a Holter and did an EKG. The EKG was normal rhythm. She states by the time they did the EKG her symptoms had resolved. She reports today she again developed palpitations, worse with even minimal exertion, assoc dizziness, chest pressure, headache. She reports the episodes come on suddenly and typically gradually resolve. She denies any LE swelling. No c/o syncope or near syncope. No c/o n/v/d. No c/o fever or chills. She has been seen in the ED and remains SOB at this time. Review of Systems-Cardiology Review of Systems Constitutional: No chills, No fever; lightheadedness Eyes: No vision change Ears/Nose/Throat: No epistaxis, No recent hearing loss Respiratory: As described under HPI Cardiovascular: As described under HPI Gastrointestinal: As described under HPI Genitourinary: No dysuria, No hematuria Musculoskeletal: no symptoms reported Skin: No rash on exposed areas, No ulcerations on exposed areas Psychiatric/Neurological: No anxiety, No depression, No seizure, No focal weakness, No syncope Hematologic: No bleeding abnormalities All Other Systems Reviewed Negative Unless Noted: Yes DPR-Meevns-Rabzfy Hx Patient Social History Smoking Status: Current Everyday Smoker Alcohol Use?: Yes Tobacco type used: Cigarettes Past Medical History PMH As described under Assessment. Family Medical History Family Medical History: She reports her mother and father both had HTN. Allergies and Home Medications Allergies Coded Allergies: No Known Drug Allergies (Unverified , 01/21/13) Patient Home Medication List Lisinopril (Lisinopril) Unknown Strength Tablet, 1 TAB PO DAILY, (Reported) Entered as Reported by: MIGDALIA MAHER on 05/18/20 1443 Nebivolol HCl (Bystolic) Unknown Strength Tablet, 1 TAB PO DAILY, (Reported) Entered as Reported by: MIGDALIA MAHER on 05/18/20 1443 Spironolactone (Spironolactone) Unknown Strength Tablet, 1 TAB PO DAILY, (Reported) Entered as Reported by: MIGDALIA MAHER on 05/18/20 1443 Venlafaxine HCl (Venlafaxine HCl) Unknown Strength Tablet, 1 TAB PO DAILY, (Reported) Entered as Reported by: MIGDALIA MAHER on 05/18/20 1443 Physical Exam-Cardiology Physical Exam Vital Signs/I&O 05/07/22 14:33 Temp 36.8 Pulse 207 Resp 22 B/P (MAP) 112/80 (91) Pulse Ox 99 O2 Delivery Room Air Capillary Refill : Constitutional: AAO x 3, well-developed, well-nourished HEENT: PERRL, hearing is well preserved, oral hygience is good Neck: No carotid bruit; carotid pulses are 2 + bilaterally Respiratory: No accessory muscle use, No respiratory distress; chest expansion is symmetric, chest is bilaterally symmetric, lungs clear to auscultation Cardiovascular: irregularly irregular, tachycardia Gastrointestinal: No tender; soft, round, audible bowel sounds Extremities: no lower extremity edema bilateral Neurologic/Psychiatric: grossly intact (moves all extremities) Skin: No rash on exposed areas, No ulcerations on exposed areas Data Review Labs Laboratory Tests 05/07/22 14:45: White Blood Count 6.7, Red Blood Count 3.87, Hemoglobin 11.9, Hematocrit 36, Mean Corpuscular Volume 92, Mean Corpuscular Hemoglobin 31, Mean Corpuscular Hemoglobin Concent 33, Red Cell Distribution Width 12.9, Platelet Count 352, Mean Platelet Volume 10.1, Immature Granulocyte % (Auto) 0, Neutrophils (%) (Auto) 64, Lymphocytes (%) (Auto) 23, Monocytes (%) (Auto) 9, Eosinophils (%) (Auto) 3, Basophils (%) (Auto) 1, Neutrophils # (Auto) 4.3, Lymphocytes # (Auto) 1.6, Monocytes # (Auto) 0.6, Eosinophils # (Auto) 0.2, Basophils # (Auto) 0.1, Immature Granulocyte # (Auto) 0.0, Prothrombin Time 12.4, INR Comment 0.9, Activated Partial Thromboplast Time 26, Sodium Level 141, Potassium Level 3.4L, Chloride Level 105, Carbon Dioxide Level 24, Anion Gap 12, Blood Urea Nitrogen 13, Creatinine 0.88, Estimat Glomerular Filtration Rate 79, BUN/Creatinine Ratio 15, Glucose Level 128H, Calcium Level 9.8, Corrected Calcium 9.6, Magnesium Level 1.7, Total Bilirubin 0.5, Aspartate Amino Transf (AST/SGOT) 16, Alanine Aminotransferase (ALT/SGPT) 11, Alkaline Phosphatase 59, Myoglobin 32.7, Troponin I < 0.028, Total Protein 7.3, Albumin 4.3 05/07/22 15:15: Urine Color YELLOW, Urine Clarity CLEAR, Urine pH 7.5, Urine Specific [place] <=1.005, Urine Protein NEGATIVE, Urine Glucose (UA) NEGATIVE, Urine Ketones NEGATIVE, Urine Nitrite NEGATIVE, Urine Bilirubin NEGATIVE, Urine Urobilinogen 0.2, Urine Leukocyte Esterase NEGATIVE, Urine RBC (Auto) TRACE-IH, Urine RBC NONE, Urine WBC NONE, Urine Squamous Epithelial Cells 2-5, Urine Crystals NONE, Urine Bacteria NEGATIVE, Urine Casts NONE, Urine Mucus NEGATIVE, Urine Culture Indicated NO Radiology NAME: HELADIO TATE [facility] REC#: [id number] PT STATUS: REG ER : 1970 PHYSICIAN: LINETTE STODDARD MD ADMIT DATE: 05/07/22/ER Draft Date of Exam:05/07/22 CHEST 1 VIEW, AP/PA ONLY EXAMINATION: Chest 1 view HISTORY: Chest pain COMPARISON: 01/21/2013 FINDINGS: Heart size and pulmonary vasculature are normal. The lungs are clear without consolidation, pleural effusion, or pneumothorax. The osseous structures are intact. There is a metallic device overlying the left chest which may be external to the patient. IMPRESSION: 1. No acute radiographic abnormality in the chest. Dictated on workstation # [id number] Dict: 05/07/22 1532 Trans: 05/07/22 1535 [facility] [id number] Interpreted by: BHARATH FRANK DO Electronically signed by: ECG Impression ECG Comment A-fib/flutter with RVR A/P-Cardiology Assessment/Admission Diagnosis Newly dx a-fib/flutter with RVR (undetermined length of time) - Cardizem gtt - OAC with Eliquis started Chest pressure/SOB - during episodes of arrhythmia HTN H/O breast augmentation Discussion and Recomendations Newly diagnosed a-fib/flutter with RVR of undetermined length of time - Cardizem gtt for rate control - OAC with Eliquis for stroke prophylaxis Echocardiogram to eval structure and function MPI to eval perfusion Monitor lab Replace electrolytes as indicated Further recs will be based on her hospital course We would like to thank medical services for this consult BELINDA KUMAR May 07, 2022 16:01
[2022-05-07] MEDS ORDERED: ACETAMINOPHEN 325 MG TABLET PO PRN (18:00)
[2022-05-07] MEDS ORDERED: ONDANSETRON 4 MG (ZOFRAN) ORAL DISSOLVE TAB PO PRN (18:00)
[2022-05-07] MEDS ORDERED: CALCIUM CARBONATE 500 MG (TUMS) TAB.CHEW PO PRN (18:00)
[2022-05-07] MEDS ORDERED: ANTACID SUSP 30 ML UDC (MYLANTA) PO PRN (18:00)
[2022-05-07] MEDS ORDERED: ONDANSETRON 4 MG/2 ML (SDV) Z0FRAN IV PRN (18:00)
[2022-05-07] MEDS ORDERED: polyethylene glycoL POWDER 17 GM (MIRALAX) PACK PO PRN (18:00)
[2022-05-07] MEDS ORDERED: MILK OF MAGNESIA 400 MG/5 ML 30 ML UDC PO PRN (18:00)
[2022-05-07] MEDS ORDERED: MELATONIN 3 MG TABLET PO PRN (18:00)
[2022-05-07] MEDS ORDERED: diphenhydrAMINE 50 MG/ML INJ (BENADRYL) IVP PRN (18:00)
[2022-05-07] MEDS ORDERED: BISACODYL 10 MG SUPP (DULCOLAX) PR PRN (18:00)
[2022-05-07] MEDS ORDERED: LACTULOSE SYRUP 10GM/15ML (ENULOSE) 30ML UDC PO PRN (18:00)
[2022-05-07] MEDS ORDERED: diphenhydrAMINE 25 MG TAB (BENADRYL) PO PRN (18:00)
[2022-05-07] MEDS ORDERED: LISI1TAB48 PO (18:26)
[2022-05-07] MEDS ORDERED: NEBI20TA2 PO (18:26)
[2022-05-07] MEDS ORDERED: SPIR50TA4 PO (18:26)
[2022-05-07] MEDS ORDERED: VENL150C98 PO (18:26)
--- NOTE | 2022-05-07 18:50 | Tele-ICU Progress Note ---
Progress Note 51 y/o female with palpitations aflutter with rvr - cardizem gtt - eliquis -cards consulted NO TELE-ICU CONSULT REQUESTED CONTINUE TO MONITOR PER USUAL TELE-ICU PROTOCOL No need for Tele-ICU interventions Plans as delineated by bedside physicians / consultants Focused Exam Height, Weight, BMI Height: '" Weight: lbs. oz. kg; 24.70 BMI Method:Stated ZUNILDA BLANC MD May 07, 2022 18:50
--- NOTE | 2022-05-07 18:55 | Consultation-Cardiology ---
HPI-Cardiology Cardiology Consultation: Date of Consultation 05/07/22 Time Seen by a Provider: 17:39 Date of Admission Attending Physician Norbert Mora MD Admitting Physician Admitting Physician: Buffy Malhotra MD Attending Physician: Buffy Malhotra MD Consulting Physician CHARLES MEJIAS MD, MA, FACP, FACC, [facility] [place], CCDS HPI: Chief Complaint: A-fib/flutter with RVR Ms. Edwards is a 51 yr old female being admitted to ICU 8 from the ED with new onset of a-fib/flutter with RVR. She reports she has been having symptoms of palpitations for several months. Previously the episodes would come on with exertion, last for minutes and resolve. She reports the episodes have become increasing worse. She states since the end of March she has not been able to exercise d/t her heart racing, SOB, dizziness. She states she went to see Ashlyn Hay APRN yesterday who noticed she had a rapid pulse. She was then sent to Dr. Montaño office where she saw his ACTING TEACHER who ordered a Holter and did an EKG. The EKG was normal rhythm. She states by the time they did the EKG her symptoms had resolved. She reports today she again developed palpitations, worse with even minimal exertion, assoc dizziness, chest pressure, headache. She reports the episodes come on suddenly and typically gradually resolve. She denies any LE swelling. No c/o syncope or near syncope. No c/o n/v/d. No c/o fever or chills. She has been seen in the ED and remains SOB at this time. Review of Systems-Cardiology Review of Systems Constitutional: No chills, No fever; lightheadedness Eyes: No vision change Ears/Nose/Throat: No epistaxis, No recent hearing loss Respiratory: As described under HPI Cardiovascular: As described under HPI Gastrointestinal: As described under HPI Genitourinary: No dysuria, No hematuria Musculoskeletal: no symptoms reported Skin: No rash on exposed areas, No ulcerations on exposed areas Psychiatric/Neurological: No anxiety, No depression, No seizure, No focal weakness, No syncope Hematologic: No bleeding abnormalities All Other Systems Reviewed Negative Unless Noted: Yes JGD-Hycepw-Pfmpiy Hx Patient Social History Smoking Status: Current Everyday Smoker Have you traveled recently?: No Alcohol Use?: Yes Pt feels they are or have been: No Tobacco type used: Cigarettes Past Medical History PMH As described under Assessment. Family Medical History Family Medical History: She reports her mother and father both had HTN. Allergies and Home Medications Allergies Coded Allergies: No Known Drug Allergies (Unverified , 01/21/13) Patient Home Medication List Home Medication List Reviewed: Yes Lisinopril/Hydrochlorothiazide (Lisinopril-Hctz 20-25 mg Tab) 20 Mg-25 Mg Tablet, 1 EACH PO DAILY Prescribed by: PAT YODER on 05/07/221825 Last Action: New Order Nebivolol HCl (Bystolic) 20 Mg Tablet, 20 MG PO DAILY Prescribed by: PTA YODER on 05/07/221825 Last Action: New Order Spironolactone (Spironolactone) 50 Mg Tablet, 50 MG PO DAILY Prescribed by: PAT YODER on 05/07/221825 Last Action: New Order Venlafaxine HCl (Venlafaxine HCl ER) 150 Mg Cap.er.24h, 150 MG PO DAILY Prescribed by: PAT YODER on 05/07/221825 Last Action: New Order Discontinued Medications Lisinopril (Lisinopril) Unknown Strength Tablet, 1 TAB PO DAILY, (Reported) Discontinued Reason: Duplicate Order Entered as Reported by: MIGDALIA MAHER on 05/18/201442 Last Action: Discontinued Nebivolol HCl (Bystolic) Unknown Strength Tablet, 1 TAB PO DAILY, (Reported) Discontinued Reason: Duplicate Order Entered as Reported by: MIGDALIA MAHER on 05/18/201442 Last Action: Discontinued Spironolactone (Spironolactone) Unknown Strength Tablet, 1 TAB PO DAILY, (Reported) Discontinued Reason: Duplicate Order Entered as Reported by: MIGDALIA MAHER on 05/18/201442 Last Action: Discontinued Venlafaxine HCl (Venlafaxine HCl) Unknown Strength Tablet, 1 TAB PO DAILY, (Reported) Discontinued Reason: Duplicate Order Entered as Reported by: MIGDALIA MAHER on 05/18/201442 Last Action: Discontinued Physical Exam-Cardiology Physical Exam Vital Signs/I&O 05/07/22 05/07/22 05/07/22 05/07/22 14:33 17:59 18:15 18:35 Temp 36.8 37.0 Pulse 207 70 69 Resp 22 16 11 B/P (MAP) 112/80 (91) 121/60 98/79 Pulse Ox 99 99 97 99 O2 Delivery Room Air Room Air Room Air Room Air Capillary Refill : Less Than 3 Seconds Constitutional: AAO x 3, well-developed, well-nourished HEENT: PERRL, hearing is well preserved, oral hygience is good Neck: No carotid bruit; carotid pulses are 2 + bilaterally Respiratory: No accessory muscle use, No respiratory distress; chest expansion is symmetric, chest is bilaterally symmetric, lungs clear to auscultation Cardiovascular: irregularly irregular, tachycardia Gastrointestinal: No tender; soft, round, audible bowel sounds Extremities: no lower extremity edema bilateral Neurologic/Psychiatric: grossly intact (moves all extremities) Skin: No rash on exposed areas, No ulcerations on exposed areas Data Review Labs Laboratory Tests 05/07/22 14:45: White Blood Count 6.7, Red Blood Count 3.87, Hemoglobin 11.9, Hematocrit 36, Mean Corpuscular Volume 92, Mean Corpuscular Hemoglobin 31, Mean Corpuscular Hemoglobin Concent 33, Red Cell Distribution Width 12.9, Platelet Count 352, Mean Platelet Volume 10.1, Immature Granulocyte % (Auto) 0, Neutrophils (%) (Auto) 64, Lymphocytes (%) (Auto) 23, Monocytes (%) (Auto) 9, Eosinophils (%) (Auto) 3, Basophils (%) (Auto) 1, Neutrophils # (Auto) 4.3, Lymphocytes # (Auto) 1.6, Monocytes # (Auto) 0.6, Eosinophils # (Auto) 0.2, Basophils # (Auto) 0.1, Immature Granulocyte # (Auto) 0.0, Prothrombin Time 12.4, INR Comment 0.9, Activated Partial Thromboplast Time 26, Sodium Level 141, Potassium Level 3.4L, Chloride Level 105, Carbon Dioxide Level 24, Anion Gap 12, Blood Urea Nitrogen 13, Creatinine 0.88, Estimat Glomerular Filtration Rate 79, BUN/Creatinine Ratio 15, Glucose Level 128H, Calcium Level 9.8, Corrected Calcium 9.6, Magnesium Level 1.7, Total Bilirubin 0.5, Aspartate Amino Transf (AST/SGOT) 16, Alanine Aminotransferase (ALT/SGPT) 11, Alkaline Phosphatase 59, Myoglobin 32.7, Troponin I < 0.028, Total Protein 7.3, Albumin 4.3 05/07/22 15:15: Urine Color YELLOW, Urine Clarity CLEAR, Urine pH 7.5, Urine Specific Freedom <=1.005, Urine Protein NEGATIVE, Urine Glucose (UA) NEGATIVE, Urine Ketones NEGATIVE, Urine Nitrite NEGATIVE, Urine Bilirubin NEGATIVE, Urine Urobilinogen 0.2, Urine Leukocyte Esterase NEGATIVE, Urine RBC (Auto) TRACE-IH, Urine RBC N ONE, Urine WBC NONE, Urine Squamous Epithelial Cells 2-5, Urine Crystals NONE, Urine Bacteria NEGATIVE, Urine Casts NONE, Urine Mucus NEGATIVE, Urine Culture Indicated NO A/P-Cardiology Assessment/Admission Diagnosis Newly dx a-fib/flutter with RVR (undetermined length of time) - Cardizem gtt - OAC with Eliquis started Chest pressure/SOB - during episodes of arrhythmia HTN H/O breast augmentation Discussion and Recomendations Newly diagnosed a-fib/flutter with RVR of undetermined length of time - Cardizem gtt for rate control - OAC with Eliquis for stroke prophylaxis Echocardiogram to eval structure and function MPI to eval perfusion Monitor lab Replace electrolytes as indicated Further recs will be based on her hospital course We would like to thank Medical services for this consult Clinical Quality Measures AMI/AHF: ASA po Prior to arrival: CHARLES Baker MD FACP FAC CCDS May 07, 2022 18:55
[2022-05-07] MEDS: APIXABAN 5 MG (ELIQUIS) TABLET PO SCH (20:46)
[2022-05-08 05:12] LABS: HEMATOCRIT 31 % (35-52); HEMOGLOBIN 10.3 g/dL (11.5-16.0); MEAN CORPUSCULAR HEMOGLOBIN 31 pg (25-34); MEAN CORPUSCULAR HGB CONC 33 g/dL (32-36); MEAN CORPUSCULAR VOLUME 92 fL (80-99); MEAN PLATELET VOLUME 10.4 fL (9.0-12.2); PLATELET COUNT 275 10^3/uL (130-400); WHITE BLOOD COUNT 7.5 10^3/uL (4.3-11.0)
[2022-05-08 05:28] LABS: ALBUMIN 3.7 GM/DL (3.2-4.5); POTASSIUM 3.7 MMOL/L (3.6-5.0)
[2022-05-08 05:29] LABS: CALCIUM 8.8 MG/DL (8.5-10.1)
[2022-05-08 05:30] LABS: TOTAL PROTEIN 6.3 GM/DL (6.4-8.2)
[2022-05-08 05:32] LABS: BILIRUBIN,TOTAL 0.3 MG/DL (0.1-1.0)
[2022-05-08 05:34] LABS: CREATININE SERUM 0.79 MG/DL (0.60-1.30)
[2022-05-08] MEDS: APIXABAN 5 MG (ELIQUIS) TABLET PO SCH (08:22)
[2022-05-08] MEDS: DOCUSATE SODIUM 100 MG (COLACE) CAP PO SCH (09:00)
[2022-05-08] MEDS: SENNOSIDES 8.6 MG (SENOKOT) TAB PO SCH (09:00)
--- NOTE | 2022-05-08 09:21 | Physical Therapy Progress Note ---
Therapy Progress Note Order received for PT evaluation. Patient states she has no difficulty with functional mobility. Patient gets up and ambulates about the room without an AD independently. Patient states she feels steady and has no need for PT. Will discharge patient from PT services at this time. Instructed patient to let nurse know if she has any PT needs in the future. RAND CORONADO PT May 08, 2022 09:21
--- NOTE | 2022-05-08 09:56 | Occ Therapy Progress Note ---
Therapy Progress Note OT orders received and chart reviewed, OT visited with pt who indicates she is at her PLOF. She has been up in her room independently, and has completed ADLs without concerns. OT to discharge pt at this time, as pt is independent and at PLOF. D/C from OT. 1, visit AMY HOSKINS OT May 08, 2022 09:56
[2022-05-08] MEDS ORDERED: VENL150C98 PO (10:15)
[2022-05-08] MEDS ORDERED: CALC-140 PO (10:15)
[2022-05-08] MEDS ORDERED: LISI1TAB48 PO (10:15)
[2022-05-08] MEDS ORDERED: NFNEB10T PO (10:15)
[2022-05-08] MEDS ORDERED: MULT200T12 PO (10:15)
[2022-05-08] MEDS ORDERED: NORE1TAB95 PO (10:15)
[2022-05-08] MEDS ORDERED: SPIR50TA4 PO (10:15)
[2022-05-08] MEDS ORDERED: CATHETER FLUSH 10 ML SYR IVP PRN (11:30)
[2022-05-08] MEDS ORDERED: REGADENOSON 0.4 MG/5 ML SYR (LEXISCAN) IV ONE ×2 (12:00→12:15)
[2022-05-08 12:02] VITALS: BP 157/94
[2022-05-08] MEDS ORDERED: DILT180C85 PO (14:10)
[2022-05-08] MEDS ORDERED: APIX5TAB PO (14:10)
--- NOTE | 2022-05-08 15:41 | Progress Note - Cardiology ---
Cardiology SOAP Progress Note Subjective: No cp or palp or syncope or shortness of breath No n/v/d No focal weakness Objective: I&O/Vital Signs 05/08/22 05/08/22 05/08/22 05/08/22 04:00 04:00 05:00 06:00 Temp 36.5 Pulse 60 61 55 Resp 20 18 B/P (MAP) 130/76 122/75 134/75 Pulse Ox 99 O2 Delivery Room Air Room Air Room Air 05/08/22 05/08/22 05/08/22 05/08/22 07:00 07:00 08:00 08:00 Temp 36.6 Pulse 67 68 57 Resp 14 13 B/P (MAP) 123/77 139/94 O2 Delivery Room Air Room Air 05/08/22 05/08/22 05/08/22 05/08/22 09:00 10:00 11:00 12:02 Pulse 63 71 62 66 Resp 16 13 22 B/P (MAP) 127/79 149/87 129/78 157/94 (115) O2 Delivery Room Air Room Air Room Air 05/08/22 13:00 Resp 20 B/P (MAP) 142/96 O2 Delivery Room Air 05/08/22 00:00 Intake Total 0 ml Output Total 0 ml Balance 0 ml Constitutional: AAO x 3, well-developed, well-nourished Respiratory: No accessory muscle use, No respiratory distress; chest expansion is symmetric, chest is bilaterally symmetric, lungs clear to auscultation Cardiovascular: irregularly irregular, tachycardia Gastrointestional: No tender; soft, round, audible bowel sounds Extremities: no lower extremity edema bilateral Neurologic/Psychiatric: grossly intact (moves all extremities) Skin: No rash on exposed areas, No ulcerations on exposed areas Results/Procedures: Labs Laboratory Tests 05/08/22 04:26: White Blood Count 7.5, Red Blood Count 3.38L, Hemoglobin 10.3L, Hematocrit 31L, Mean Corpuscular Volume 92, Mean Corpuscular Hemoglobin 31, Mean Corpuscular Hemoglobin Concent 33, Red Cell Distribution Width 13.0, Platelet Count 275, Mean Platelet Volume 10.4, Sodium Level 137, Potassium Level 3.7, Chloride Level 105, Carbon Dioxide Level 22, Anion Gap 10, Blood Urea Nitrogen 18, Creatinine 0.79, Estimat Glomerular Filtration Rate 90, BUN/Creatinine Ratio 23, Glucose Level 97, Calcium Level 8.8, Corrected Calcium 9.0, Total Bilirubin 0.3, Aspart ate Amino Transf (AST/SGOT) 13, Alanine Aminotransferase (ALT/SGPT) 9, Alkaline Phosphatase 48, Total Protein 6.3L, Albumin 3.7, Triglycerides Level 58, Cholesterol Level 199, LDL Cholesterol Direct 128, VLDL Cholesterol 12, HDL Cholesterol 62H A/P: Assessment: Newly dx a-flutter with RVR, now NSR - oral long-acting dilt for rate control - apixaban for stroke prophylaxis - outpt cardiac and EP f/u Chest pressure/SOB - during episodes of arrhythmia - MPI on 05/08/22: no ischemia or infarction, LVEF normal HTN H/O breast augmentation Plan: * Continue oral dilt and apixaban * Outpt f/u, including EP consult * Questions answered Clinical Quality Measures AMI/AHF: ASA po Prior to arrival: CHARLES Baker MD FACP FAC CCDS May 08, 2022 15:41
--- NOTE | 2022-05-08 19:07 | STRESS TEST ---
DATE OF SERVICE: 05/08/2022 RESTING AND POST REGADENOSON TECHNETIUM-99M TETROFOSMIN SPECT CT IMAGING ORDERING PHYSICIAN: Elin Torres APRN PRIMARY PHYSICIAN: Dr. Mora. ATTENDING PHYSICIAN: Dr. Malhotra. CLINICAL DIAGNOSIS: Chest discomfort. Baseline images were carried out after injection of 10.53 mCi of technetium-99m Tetrofosmin. This was followed by 0.4 mg regadenoson and 32 mCi of technetium-99m Tetrofosmin for stress imaging. The electrocardiogram showed sinus rhythm at baseline. It did not change significantly with the regadenoson infusion. Review of images at rest and following stress does not indicate any significant perfusion defects consistent with significant myocardial ischemia or infarction. Gated images show normal global left ventricular systolic function with normal regional wall motion. Left ventricular ejection fraction is calculated to be 54%. CONCLUSIONS: 1. No evidence of any significant myocardial ischemia or infarction on this study. 2. Normal regional wall motion. 3. Normal global left ventricular systolic function with a calculated ejection fraction of 54%. Job ID: [id number] DocumentID: [id number] Dictated Date: 05/08/2022 13:31:42 Director Of Student Affairs Date: 05/08/2022 19:06:01 Dictated By: CHARLES MEJIAS MD, MA, FACP, FACC,
--- NOTE | 2022-05-08 22:21 | Short Stay Summary-Hospitalist ---
History of Present Illness HPI/Chief Complaint Lurdes Edwards is a 51 year old female who presented with chest pain and palpitations. She also had some shortness of breath. She denies cough. She generally felt unwell. She had been having these symptoms off and on for a couple weeks. Upon my exam, she had been started on Cardizem drip and she had returned to normal sinus rhythm with normal rate. She is no longer having any chest pain or palpitaitons. She has no complaints. She has no history of atrial flutter. Source: patient Exam Limitations: no limitations Date Seen 05/08/22 Time Seen by a Provider: 08:50 Attending Physician Norbert Mroa MD PCP Admitting Physician: Aruna Tan MD Attending Physician: Aruna Tan MD Referring Physician Date of Admission May 07, 2022 at 17:37 Home Medications & Allergies Home Medications Reviewed patient Home Medication Reconciliation performed by pharmacy medication reconciliations rim technician and/or nursing. Patients Allergies have been reviewed. Allergies Allergies Coded Allergies No Known Drug Allergies (Unverified01/21/13) Past Dyjbckk-Ahzegx-Ndovfx Hx Patient Social History Tobacco Use?: Yes Tobacco type used: Cigarettes Smoking Status: Current Everyday Smoker Use of E-Cig and/or Vaping dev: No Substance use?: No Alcohol Use?: Yes Alcohol type: Beer Alcohol Frequency: Couple times a week Pt feels they are or have been: No Immunizations Up To Date First/Initial COVID19 Vaccinat: 2020 Second COVID19 Vaccination Norbert: 2020 Seasonal Allergies Seasonal Allergies: No Current Status status: No Advance Directives: No Communicates: Verbally Primary Language: [place] Preferred Spoken Language: [place] Is interpretation needed?: No Implanted or Applied Medical D: None, Contraceptive device Past Medical History Surgeries: Section Hypertension Depression Blood Disorders: No Family Medical History Cancer, Hypertension Review of Systems Constitutional: malaise EENTM: no symptoms reported Respiratory: short of breath Cardiovascular: chest pain, palpitations Gastrointestinal: no symptoms reported Genitourinary: no symptoms reported Physical Exam Physical Exam Vital Signs Vital Signs - First Documented 05/07/22 14:33 Temp 36.8 Pulse 207 Resp 22 B/P (MAP) 112/80 (91) Pulse Ox 99 O2 Delivery Room Air Capillary Refill : Less Than 3 Seconds Height, Weight, BMI Height: '" Weight: lbs. oz. kg; 24.70 BMI Method:Stated General Appearance: No Apparent Distress, WD/WN HEENT: PERRL/EOMI, Pharynx Normal Neck: Normal Inspection, Supple Respiratory: Lungs Clear, Normal Breath Sounds, No Respiratory Distress Cardiovascular: Regular Rate, Rhythm, No Edema Gastrointestinal: Normal Bowel Sounds, Non Tender, Soft Extremity: Normal Inspection, Non Tender, No Pedal Edema Neurologic/Psychiatric: Alert, Oriented x3, Normal Mood/Affect Skin: Normal Color, Warm/Dry Results Results/Procedures Labs Laboratory Tests 05/07/22 14:45 05/08/22 04:26 Patient resulted labs reviewed. Imaging: Reviewed Imaging Report Short Stay Diagnosis Discharge Diagnosis-Short Stay Admission Diagnosis Atrial flutter with RVR Final Discharge Diagnosis Atrial flutter with RVR Conclusion Plan Atrial flutter with RVR Cardizem gtt stopped Begin oral Cardizem Started on Eliquis Follow up with Cardiology and EP Chest pain Stress test normal Follow up with Cardiology Diagnosis/Problems Diagnosis/Problems (1) Atrial flutter with rapid ventricular response Status: Acute (2) Chest pain Status: Acute Qualifiers: Qualified Codes: R07.9 - Chest pain, unspecified Clinical Quality Measures AMI/AHF: ASA po Prior to arrival: No ARUNA TAN MD May 08, 2022 22:21
== END 2022-05-08 15:48 | disposition home or self-care (01) ==
LOC: EDUNIT# 14:29 → ER 14:30 → ICU 17:37 → UNDOADMOB 17:37 → ICU 18:04 → UNDODISOB 05-08 16:20
PROVIDERS: ADMIT Internal Medicine; ATTEND Internal Medicine
DX: I48.92 Unspecified atrial flutter (principal); I48.91 Unspecified atrial fibrillation; F17.210 Nicotine dependence, cigarettes, uncomplicated; I10 Essential (primary) hypertension; F32.A Depression, unspecified
CPT/HCPCS: 36415; 71045; 78452; 80053; 80061; 81000; 83735; 83874; 84484; 85025; 85027; 85610; 85730; 87081; 93005; 93017; 93306; G0378